=== PATIENT | female | born 1975 | race Caucasian/White ===

== ENCOUNTER → 2018-02-17 09:51 | Outpatient (CLI) | payer BC, SELFPAY ==
--- NOTE | 2018-02-17 09:54 | US_ITS ---
US thyroid HISTORY: ITS.REASON: THYROMEGALY ORDERING PHYSICIAN: Xiomy Salazar PATIENT AGE: 42 years Comparison: 02/10/2017 FINDINGS: The right lobe is 3.4 x 1.5 x 1.5 cm. 2 mm cyst is present in the lower pole unchanged. The left lobe is 4.4 x 1.5 x 1.5 cm without discrete nodule. The isthmus has an unremarkable appearance at 3 mm. IMPRESSION: Stable appearance of the thyroid gland. Left lobe is slightly larger than the right. No suspicious nodules are evident
== END ==
PROVIDERS: PCP Nurse Practitioner Family; Visit Provider Nurse Practitioner Family
DX: E01.0 Iodine-deficiency related diffuse (endemic) goiter (principal)
CPT/HCPCS: 76536

== ENCOUNTER → 2020-03-13 16:06 | Outpatient (CLI) | payer BC, SELFPAY ==
[2020-03-15 10:30] LABS: Covid-19 Nasal PCR Sendout P&C Negative
== END ==
PROVIDERS: PCP Family Medicine; Visit Provider Family Medicine
DX: Z03.818 Encounter for observation for suspected exposure to other biological agents ruled out (principal)
CPT/HCPCS: U0004

== ENCOUNTER 2020-07-02 12:21 | Emergency (ER) | payer BC, SELFPAY ==
[2020-07-02 12:30] VITALS: BP 120/75; PULSE 101; RESP 16; TEMP 37.1; O2SAT 100; BMI 23.6
--- NOTE | 2020-07-02 12:43 | HMH.EDUTC ---
[facility] [place] Disposition Clinical Impression: Encounter for laboratory testing for COVID-19 virus Disposition: Home, Self-Care Condition on Discharge: Good Instructions: DI for COVID-19 (Suspected or Confirmed ), Coronavirus Disease 2019, Preventing the Spread of Coronavirus Discharge Instructions Additional Instructions: You were tested for today for COVID19 your test result should be back in the next 24-48 hours, you may call to the [facility] to see if your test results are back in the next 48 hours [phone] [facility] hours are 9am-9pm You was given a handout with instructions for Self Quarantine and Self isolation for while you wait on test results and what to do if they are positive If you are positive the Health Dept will be contacting you also Referrals: Tanika Borderick MD [Primary Care Provider] - As needed Forms: Work/School Release Time of Disposition: 12:47 Medical Decision Making - Yovani Inquiry Pt receiving controlled substance: No Yovani was queried for this patient: No Vital Signs: 07/02/20 12:30 Temperature 98.7 F Temperature Source Oral Pulse Rate [Right Brachial] 101 H Respiratory Rate 16 Blood Pressure [Right Arm] 120/75 Blood Pressure Mean [Right Arm] 90 Blood Pressure Source [Right Arm] Automatic Cuff Blood Pressure Position [Right Arm] Sitting 02 Sat by Pulse Oximetry 100 Oxygen Delivery Method Room Air Orders (Tests/Meds): ORDERS Category Date Time Status Covid-19 Nasal PCR ([facility]) Routine Lab 07/02/20 12:28 Ordered [facility] HPI - General Stated complaint: covid test Time Seen by Provider: 07/02/20 12:43 Mode of Arrival: Ambulatory Source of Information: Patient Limitations: No Limitations Description of Symptoms (Recalled from Triage Doc. by RN): COVID TEST D/T EXPOSURE HEENT Symptoms (Recalled from RN notes): No Resp Symptoms (Recalled from RN notes): No Skin Symptoms (Recalled from RN notes): No MS Symptoms (Recalled from RN notes): No Functional Status (Recalled from RN notes): WNL - History of Present Illness Provider Complaint: Patient states that she was recently exposed to someone that has since tested positive for COVID States that she is not having any symptoms but wanted to get tested - Related Data Allergies Allergy/AdvReac Type Severity Reaction Status Date / Time No Known Drug Allergies Allergy Unknown Verified 04/18/21 12:39 [NO KNOWN DRUG ALLERGIES] - Worker's Comp Is this a Worker's Comp case?: No H History - Hepatitis A Screen Drug use history?: No High risk sexual behaviors?: No History of sexually transmitted infection?: No Currently employed?: No Childcare worker?: No Do you have indoor plumbing?: Yes Do you have electricity?: Yes Attestation statement:: This patient has been screened for Hepatitis A risk factors. I have reviewed the patient's past medical history: Yes ROS Obtained: Yes All systems reviewed & no additional complaints, Yes Systems reviewed as appropriate & no additional complaints - Constitutional Constitutional: Reports system reviewed and no additional complaints, except as docu, Denies body ache, Denies chills, Denies fatigue, Denies fever(s) - ENT Ears, Nose, Mouth, and Throat: Reports system reviewed and no additional complaints, except as docu, Denies sinus pain, Denies sinus pressure, Denies sore throat - Cardiovascular Cardiovascular: Reports system reviewed and no additional complaints, except as docu - Respiratory Respiratory: Reports system reviewed and no additional complaints, except as docu Physical Exam - General General appearance: alert, in no apparent distress - ENT ENT exam: Present: normal exam, normal oropharynx, mucous membranes moist, TM's normal bilaterally, normal external ear exam - Respiratory Respiratory exam: Present: normal lung sounds bilaterally. Absent: respiratory distress - Cardiovascular Cardiovascular exam: Present: regular rate, normal rhythm. Absent: JVD - Neurological
[2020-07-02 12:54] VITALS: BP 123/78; PULSE 79; RESP 19; TEMP 36.4; O2SAT 100
== END 2020-07-02 12:54 | disposition home or self-care (01) ==
PROVIDERS: Emergency Provider Nurse Practitioner; PCP Family Medicine
DX: Z20.822 Contact with and (suspected) exposure to COVID-19 (principal)
CPT/HCPCS: 99202; G0463; U0003

== ENCOUNTER 2021-01-27 16:42 | Emergency (ER) | payer BC, SELFPAY ==
[2021-01-27 16:45] VITALS: BP 109/71; PULSE 71; RESP 18; TEMP 36.8; O2SAT 98; BMI 24.7
[2021-01-27 17:22] LABS: UTC Strep Screen (Rapid) Negative (Negative)
--- NOTE | 2021-01-27 17:36 | HMH.EDUTC ---
[facility] [place] Disposition Clinical Impression: Encounter for laboratory testing for COVID-19 virus Sinusitis Qualifiers: Sinusitis location: maxillary Chronicity: acute Recurrence: non-recurrent Qualified Code(s): J01.00 - Acute maxillary sinusitis, unspecified Disposition: Home, Self-Care Condition on Discharge: Good Instructions: Sinusitis, DI for Sinusitis Additional Instructions: covid swab was sent to lab, call later tomorrow for results. self isolate until test results are known to be negative Start antibiotic patient to take as ordered for a full length of time even if you feel better. Sinus infections do not get better overnight. It may take 2-3 days to notice much improvement so be sure to use conservative measures as discussed for symptoms. Flonase 1 spray each nostril daily to help with nasal congestion, sinus and ear pressure/information Humidifier/vaporizer as needed Tylenol and ibuprofen as needed for fever or pain. If symptoms do not improve or get worse return or be seen in the ER Nasal saline and bulb syringe or nose Naida to remove nasal drainage to help with nasal congestion. Hard to eat, drink, sleep with nasal congestion so important to keep this cleaned out. Monitor temp. Encourage fluids, water, Gatorade, Powerade, Pedialyte if /toddler/child Warm salt water gargles Warm fluids Sore throat lozenges Sleep elevated Follow-up immediately for new or worsening symptoms or no noticeable improvement over the next 48-72 hours. Prescriptions: Fluticasone Propionate [Flonase 50mcg nasal spray 16gm] 1 spr NS DAILY 14 Days #9.9 ml Transmission Status: Pending to [facility] #[id number] Azithromycin [Zithromax 250mg tab] 250 mg PO DIRECTED #6 tab Transmission Status: Pending to [facility] #[id number] Referrals: Jose Bales MD [Primary Care Provider] - Time of Disposition: 17:41 Medical Decision Making - Yovani Inquiry Pt receiving controlled substance: No Vital Signs: 01/27/21 16:45 Temperature 98.2 F Temperature Source Oral Pulse Rate [Right Brachial] 71 Respiratory Rate 18 Blood Pressure [Right Arm] 109/71 L Blood Pressure Mean [Right Arm] 83 Blood Pressure Source [Right Arm] Automatic Cuff Blood Pressure Position [Right Arm] Sitting 02 Sat by Pulse Oximetry 98 Oxygen Delivery Method Room Air - Lab Data Lab Results 01/27/21 16:56: Strep Scn Rapid Clinic Negative Orders (Tests/Meds): ORDERS Category Date Time Status Covid-19 Nasal PCR ([facility]) Routine Lab 01/27/21 16:56 Ordered Strep Screen Confirmation Stat Micro 01/27/21 16:56 Received [facility] [place] HPI - General Chief complaint: Urgent Treatment Center Stated complaint: h/a stomach pain Time Seen by Provider: 01/27/21 17:36 Mode of Arrival: Ambulatory Source of Information: Patient Limitations: No Limitations Description of Symptoms (Recalled from Triage Doc. by RN): PATIENT C/O HEADACHE, BODY ACHES, AND SORE THROAT SINCE FRIDAY HEENT Symptoms (Recalled from RN notes): Yes Resp Symptoms (Recalled from RN notes): No Skin Symptoms (Recalled from RN notes): No MS Symptoms (Recalled from RN notes): No Functional Status (Recalled from RN notes): WNL - History of Present Illness Provider Complaint: 45 yr old female presents for cough, sore throat, yellow/green drainage and lazar since - Related Data Previous Rx's Medication Instructions Recorded Azithromycin [Zithromax 250mg 250 mg PO DIRECTED #6 tab 01/27/21 tab] Fluticasone Propionate [Flonase 1 spr NS DAILY 14 Days #9.9 ml 01/27/21 50mcg nasal spray 16gm] Allergies Allergy/AdvReac Type Severity Reaction Status Date / Time No Known Drug Allergies Allergy Unknown Verified 07/02/20 12:39 [NO KNOWN DRUG ALLERGIES] - Worker's Comp Is this a Worker's Comp case?: No [facility] History - Hepatitis A Screen Drug use history?: No High risk sexual behaviors?: No History of sexually transmitted infection?: No Cur
[2021-01-27 17:39] VITALS: BP 109/71; PULSE 71; RESP 18; TEMP 36.8; O2SAT 98
== END 2021-01-27 17:46 | disposition home or self-care (01) ==
PROVIDERS: Emergency Provider Nurse Practitioner Family; PCP Family Medicine
DX: J01.00 Acute maxillary sinusitis, unspecified (principal); Z20.822 Contact with and (suspected) exposure to COVID-19
CPT/HCPCS: 87880; 99203; C9803; G0463; U0003; U0005

== ENCOUNTER 2022-12-06 09:59 | Emergency (ER) | payer BC, SELFPAY ==
[2022-12-06 10:15] VITALS: BP 112/86; PULSE 81; RESP 17; TEMP 37.1; O2SAT 99; BMI 24.8
--- NOTE | 2022-12-06 10:36 | EXP.UTC ---
Discharge Plan Disposition Patient Disposition: Home, Self-Care Condition: Good Prescriptions Prescriptions: New cyclobenzaprine 10 mg tablet 10 mg PO Q8H PRN (Reason: muscle spasm) Qty: 30 0RF No Action venlafaxine 75 mg capsule,extended release 24hr 75 mg PO DAILY Patient Comments: TAKE 1 CAPSULE BY MOUTH EVERY DAY Referrals Follow up/Referrals: Tanika Broderick MD [Primary Care Provider] - See instructions Activity Restrictions/Add. Instructions Additional Instructions/Restrictions: Rest - use crutches Compression sleeve Ice Follow up with Dr Broderick next week To ER if severe pain, numbness, swelling Clinical Impressions Clinical Impression: Gastrocnemius muscle strain Stand Alone Forms Stand Alone Forms: Work/School Release Instructions Patient Instructions: DI for Calf Muscle Strain Discharge ED Provider: Yulissa Barker [facility] HPI General Stated complaint: AO12/05, Rt leg pain Time Seen by Provider: 12/06/22 10:30 History of Present Illness Provider Complaint: Pain in right calf since last night. Jumped and had severe pain in right calf. Cannot bear weight on right calf. She does smoke. She does not take OCPs. No history of DVT. Has had a few car trips recently, only a few hours. Has had twingy maria in the calf off and on for the past month but not severe until last night. Onset (ago): day(s) (1) Location: right and lower extremity Relieving factors: immobilization and movement Exacerbating factors: movement Associated symptoms: denies other symptoms Treatments prior to arrival: none Related Data Home Medications Medication Instructions Recorded Confirmed venlafaxine 75 mg capsule,extended 75 mg PO DAILY Anxiety 12/06/22 12/06/22 release 24 hr Previous Rx's Medication Instructions Recorded cyclobenzaprine 10 mg tablet 10 mg PO Q8H PRN muscle spasm #30 12/06/22 tabs Allergies Allergy/AdvReac Type Severity Reaction Status Date / Time No Known Drug Allergies Allergy Unknown Verified 07/02/20 12:39 [NO KNOWN DRUG ALLERGIES] [facility] Disclaimer: The information contained in this section may have been updated after the patient was seen, as this information can be updated by other users. Medical History (Updated 12/06/22 @ 11:43 by LAINEY Gonzalez) Anxiety Surgical History (Updated 12/06/22 @ 10:52 by Steffi Alaniz RN) History of tubal ligation Social History Smoking Status: Current every day smoker alcohol intake: never current occupational status: employed Travel in the last 8 weeks: None ROS Obtained: Yes All systems reviewed & no additional complaints except as documented Musculoskeletal Musculoskeletal: Reports as per HPI and Reports muscle cramps Physical Exam General General appearance: alert and in no apparent distress Chest Chest inspection: Present normal inspection and symmetric chest wall rise; Absent tenderness Respiratory Respiratory exam: Present normal lung sounds bilaterally; Absent respiratory distress Cardiovascular Cardiovascular exam: Present regular rate and normal rhythm; Absent JVD Extremities Exam Extremities exam: Present normal inspection, full ROM, normal capillary refill and calf tenderness Expanded Lower Extremity Exam Right: Lower leg exam: Present tenderness, swelling and Homans' sign Neurological Exam Neurological exam: Present alert and oriented X3 Psychiatric Psychiatric exam: Present normal affect and normal mood Skin Skin exam: Present warm, dry, intact and normal color Lymphatic Lymphatic Findings: no adenopathy Medical Decision Making Yovani Inquiry Pt receiving controlled substance: No CT Data ED CT Reviewed: Yes I discussed the CT results w/the radiologist US Data US Images: Lower Extremity ED US Reviewed: Yes I discussed the US results w/the radiologist Findings Narrative: No DVT - fluid overlying muscle
--- NOTE | 2022-12-06 10:46 | CA_ITS ---
FINAL REPORT TECHNIQUE: Multiple transverse and longitudinal images were performed of the right femoral-popliteal deep venous system with augmentation and compression maneuvers. CLINICAL HISTORY: Pain and swelling. Patient states she had right calf pain in posterior region that started 1-2 weeks ago. This week she jumped off something and injured this area worse. Smoker, no history of DVT, COMPARISON: None FINDINGS: Right lower extremity duplex ultrasound demonstrates normal flow in the deep venous system. There is no abnormal echogenicity to suggest thrombus. There is normal compression and augmentation. IMPRESSION: No evidence of right DVT. Reviewed, Interpreted and Dictated by Eitan Alvarado MD Transcribed by Naheed Witt Authenticated and [facility]
[2022-12-06 11:48] VITALS: BP 112/86; PULSE 81; RESP 17; TEMP 37.1; O2SAT 99
== END 2022-12-06 11:59 | disposition home or self-care (01) ==
PROVIDERS: Emergency Provider Physician Assistant; PCP Family Medicine
DX: S86.111A Strain of other muscle(s) and tendon(s) of posterior muscle group at lower leg level, right leg, initial encounter; F17.210 Nicotine dependence, cigarettes, uncomplicated; F41.9 Anxiety disorder, unspecified; X58.XXXA Exposure to other specified factors, initial encounter
CPT/HCPCS: 93971; 99212; 99214; G0463

== ENCOUNTER → 2022-12-19 08:31 | Outpatient (CLI) | payer BC, SELFPAY ==
--- NOTE | 2022-12-19 08:43 | XR_ITS ---
FINAL REPORT CLINICAL HISTORY: Right lower extremity pain. FINDINGS: RIGHT TIBIA/FIBULA There is no acute fracture or dislocation. The joint spaces are intact. There is no soft tissue abnormality. IMPRESSION: No acute fracture Reviewed, Interpreted and Dictated by Quoc Tse III, MD Transcribed by Sujey Morrissey Authenticated and [facility]
== END ==
LOC: RAD 08:32
PROVIDERS: PCP Family Medicine; Visit Provider Orthopaedic Surgery
DX: M79.604 Pain in right leg (principal); S82.201A Unspecified fracture of shaft of right tibia, initial encounter for closed fracture; S82.401A Unspecified fracture of shaft of right fibula, initial encounter for closed fracture
CPT/HCPCS: 73590

== ENCOUNTER 2023-07-03 13:22 | Outpatient (CLI) | payer OTHER, SELFPAY ==
--- NOTE | 2023-07-03 13:26 | US_ITS ---
FINAL REPORT TECHNIQUE: Real-time grayscale and color ultrasound of the thyroid was performed. CLINICAL HISTORY: DISORDER OF THYROID GLAND COMPARISON: 02/17/2018 FINDINGS: The thyroid gland is mildly enlarged and measures 41 x 15 x 13 mm on the right and 43 x 12 x 15 mm on the left. The isthmus measures 2 mm. The parenchyma is unremarkable . Nodules: No suspicious mass or nodule identified. IMPRESSION: Mildly enlarged thyroid gland with no suspicious mass or nodule seen. Reviewed, Interpreted and Dictated by Eitan Alvarado MD Transcribed by Naheed Witt Authenticated and [facility]
== END 2023-07-03 23:59 | disposition home or self-care (01) ==
LOC: RAD 13:23
PROVIDERS: PCP Nurse Practitioner Family; Visit Provider Nurse Practitioner Family
DX: E07.9 Disorder of thyroid, unspecified (principal)
CPT/HCPCS: 76536

== ENCOUNTER 2023-10-17 13:03 | Outpatient (CLI) | payer OTHER, SELFPAY ==
--- NOTE | 2023-10-17 13:09 | CT_ITS ---
FINAL REPORT TECHNIQUE: Thin section axial CT images with coronal and sagittal reformats were performed through the neck. This study was performed with techniques to keep radiation doses as low as reasonably achievable (ALARA). Individualized dose reduction techniques using automated exposure control or adjustment of mA and/or kV according to the patient''s size were employed. CLINICAL HISTORY: h/o goiter COMPARISON: None FINDINGS: No adenopathy or mass lesion is present . There is no evidence of inflammation. Salivary glands are normal. Larynx is unremarkable. The thyroid gland has a normal appearance. There is mild mucoperiosteal thickening of the right maxillary sinus. There is moderate disc space narrowing at C5-6. The vertebrae are normal in height. There is no malalignment. The facets are properly aligned. Endplate hypertrophy is noted at C5-6 with moderate right neuroforaminal narrowing. IMPRESSION: No acute process. Unremarkable appearance of the thyroid gland. Reviewed, Interpreted and Dictated by Eitan Alvarado MD Transcribed by Naheed Witt Authenticated and [facility]
== END 2023-10-17 23:59 | disposition home or self-care (01) ==
LOC: RAD 13:05
PROVIDERS: PCP Nurse Practitioner Family; Visit Provider Nurse Practitioner
DX: E01.0 Iodine-deficiency related diffuse (endemic) goiter (principal); R22.1 Localized swelling, mass and lump, neck
CPT/HCPCS: 70490